=== PATIENT | male | born 1940 ===

== ENCOUNTER → 2021-02-26 | Outpatient (CLI) | payer OTHER, BC | LOC: EDBD → CAT 08:00 | PROVIDERS: ATTEND Internal Medicine | DX: I25.10 Atherosclerotic heart disease of native coronary artery without angina pectoris (principal); J43.8 Other emphysema; J47.9 Bronchiectasis, uncomplicated; M25.78 Osteophyte, vertebrae; Z95.1 Presence of aortocoronary bypass graft ==